=== PATIENT | female | born 1995 | race Two or more races ===

== ENCOUNTER 2022-10-21 20:17 | Emergency (ER) | payer BC ==
[~2022-10-21] VITALS: Ht 162.6 cm; Wt 97.5 kg
[2022-10-21] MEDS ORDERED: NAPROXEN 250 MG TABLET PO ONE (21:30)
[2022-10-21] MEDS ORDERED: CYCLOBENZAPRINE 10 MG TABLET PO ONE (21:30)
[2022-10-21] MEDS ORDERED: NAPROXEN 250 MG TABLET ONE (21:36)
[2022-10-21] MEDS ORDERED: CYCLOBENZAPRINE 10 MG TABLET ONE (21:36)
[2022-10-21] MEDS ORDERED: CYCL10TA9 PO (22:51)
--- NOTE | 2022-10-21 23:02 | NUR ---
Patient discharged to home in stable condition. Written and verbal after care instructions given. Patient verbalizes understanding of instruction.
[2022-10-21 23:03] VITALS: BP 135/70
== END 2022-10-21 23:03 | disposition home or self-care (01) ==
LOC: ER 20:19
DX: M54.2 Cervicalgia (principal); M25.511 Pain in right shoulder; R68.84 Jaw pain; Z79.899 Other long term (current) drug therapy; V43.52XA Car driver injured in collision with other type car in traffic accident, initial encounter; Y93.89 Activity, other specified; Y92.89 Other specified places as the place of occurrence of the external cause; Y99.8 Other external cause status
CPT/HCPCS: 73030-TC